=== PATIENT | male | born 1990 | race American Indian/Alaskan Native ===

== ENCOUNTER 2017-01-31 16:43 | Emergency (ER) | payer OTHER ==
[2017-01-31] MEDS ORDERED: NORCO 5/325 PO ONE (19:03)
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
[2017-01-31 20:36] VITALS: BP 119/76
== END 2017-01-31 20:30 | disposition home or self-care (01) ==
LOC: ED 16:43
DX: S66.912A Strain of unspecified muscle, fascia and tendon at wrist and hand level, left hand, initial encounter (principal); Z88.0 Allergy status to penicillin; V87.7XXA Person injured in collision between other specified motor vehicles (traffic), initial encounter; Y93.89 Activity, other specified; Y99.9 Unspecified external cause status; Y92.410 Unspecified street and highway as the place of occurrence of the external cause